=== PATIENT | female | born 2005 | race Caucasian/White ===

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

== ENCOUNTER 2023-05-18 21:10 | Emergency (ER) | payer MEDICAID ==
[~2023-05-18] VITALS: Ht 157.5 cm; Wt 46.2 kg
[~2023-05-18 21:10] MED LIST changes: +IBUP-2030 PO; +NORE0.3520 MT; +PREN-52 MT
[2023-05-18 21:20] VITALS: BP 98/64; PULSE 65; RESP 21; TEMP 98.2; O2SAT 98
[2023-05-18] MEDS ORDERED: DIPHENHYDRAMINE 25MG CAPSULE PO ONE (23:00)
[2023-05-18] MEDS ORDERED: PREDNISONE 20MG TABLET PO ONE (23:00)
[2023-05-18] MEDS ORDERED: P20 PO (23:02)
[2023-05-18] MEDS ORDERED: DIPH25CA83 MT (23:02)
== END 2023-05-18 23:36 | disposition home or self-care (01) ==
LOC: ER 21:10
DX: T78.40XA Allergy, unspecified, initial encounter (principal); R21 Rash and other nonspecific skin eruption; Z79.899 Other long term (current) drug therapy; X58.XXXA Exposure to other specified factors, initial encounter
CPT/HCPCS: 99283; Q0163; J7512

== ENCOUNTER 2023-10-22 19:59 | Emergency (ER) | payer MEDICAID ==
[~2023-10-22] VITALS: Ht 165.1 cm; Wt 48.0 kg
[~2023-10-22 19:59] MED LIST changes: +DIPH25CA83 MT; +P20 PO
[2023-10-22 20:34] VITALS: RESP 14; O2SAT 98
[2023-10-22 21:10] LABS: BASOPHILS % 0.4 % (0.0-2.0); EOSINOPHILS % 4.9 % (0.0-5.0); HEMATOCRIT. 37.7 % (36.0-48.0); HEMOGLOBIN. 13.2 g/dL (12.0-16.0); LYMPHOCYTES % 30.6 % (20.0-50.0); MEAN CORPUSCULAR HEMOGLOBIN 30.3 pg (28.0-32.0); MEAN CORPUSCULAR HGB CONC 34.9 g/dL (31.0-37.0); MEAN CORPUSCULAR VOLUME 86.8 fL (81.0-99.0); MEAN PLATELET VOLUME 8.1 fl (7.4-10.4); MONOCYTES % 5.3 % (2.0-8.0); NEUTROPHILS % 58.8 % (40.0-76.0); PLATELET 261 x1000/uL (130-400); RED BLOOD CELL COUNT 4.34 mill/uL (4.2-5.4); WHITE BLOOD COUNT 10.4 x1000/uL (4.5-11.0)
[2023-10-22 21:33] LABS: ALANINE AMINOTRANSFERASE 9 IU/L (10-49); ALBUMIN 4.2 g/dL (3.2-4.8); ASPARTATE AMINOTRANSFERASE 15 IU/L (<34); B-HCG QUANTITATIVE 4092 mIU/mL (<3); BILIRUBIN TOTAL 0.3 mg/dL (0.1-1.0); CARBON DIOXIDE 24 mEq/L (21-32); CHLORIDE 108 mEq/L (98-107); CREATININE 0.8 mg/dL (0.6-1.0); GLUCOSE 94 mg/dL (70-105); POTASSIUM 3.8 mEq/L (3.5-5.1); PROTEIN TOTAL 6.8 g/dL (6.0-8.3); SODIUM 136 mEq/L (136-145); UREA NITROGEN BLOOD 13 mg/dL (9-23)
[2023-10-22 23:05] LABS: CLARITY URINE CLEAR (CLEAR); COLOR URINE YELLOW (YELLOW); GLUCOSE URINE NEGATIVE (NEGATIVE); KETONES URINE NEGATIVE (NEGATIVE); LEUKOCYTE ESTERASE URINE NEGATIVE (NEGATIVE); NITRITE URINE NEGATIVE (NEGATIVE); OCCULT BLOOD URINE NEGATIVE (NEGATIVE); PROTEIN URINE NEGATIVE (NEGATIVE); SPECIFIC GRAVITY URINE 1.011 (1.005-1.030); UROBILINOGEN URINE 0.2 E.U./dL (0.2-1.0)
[2023-10-23] MEDS: ACETAMINOPHEN 325MG TABLET PO NR (01:40)
[2023-10-23 02:58] VITALS: BP 89/62; PULSE 77; TEMP 98.8
== END 2023-10-23 03:00 | disposition home or self-care (01) ==
LOC: ER 19:59
DX: K21.9 Gastro-esophageal reflux disease without esophagitis (principal)
CPT/HCPCS: 36415; 76830; 76856; 80053; 81003; 84702; 85025; 86850; 86900; 99284